=== PATIENT | male | born 1995 | race Caucasian/White ===

== ENCOUNTER 2022-11-09 09:45 | Day surgery (SDC) | payer OTHER ==
[~2022-11-09] VITALS: Ht 177.8 cm; Wt 99.4 kg
[~2022-11-09 09:45] MED LIST: ceFAZolin SOD 2 GM in IV 1 EA IV ONE
[2022-11-09] MEDS ORDERED: ceFAZolin SOD 2 GM in IV 1 EA IV ONE (10:00)
[2022-11-09] MEDS ORDERED: LR 1,000 ML IV SCH ×2 (10:00→11:30)
[2022-11-09] MEDS ORDERED: fentaNYL 100 MCG/2 ML INJECTION As Ordered ONE ×2 (10:02→11:02)
[2022-11-09] MEDS ORDERED: MIDAZOLAM INJ 2MG/2ML VIAL As Ordered ONE (10:02)
[2022-11-09] MEDS ORDERED: ROCURONIUM BROMIDE 50MG/5ML VIAL As Ordered ONE (10:04)
[2022-11-09] MEDS ORDERED: LIDOCAINE 1% SDV 30ML VIAL As Ordered ONE (10:05)
[2022-11-09] MEDS ORDERED: propofoL 200 MG/20 ML VIAL As Ordered ONE (10:55)
[2022-11-09] MEDS ORDERED: dexmedeTOMIDine (4MCG/ML)200MCG/50ML BTL (PRECEDEX) As Ordered ONE (10:55)
[2022-11-09] MEDS ORDERED: SUGAMMADEX SODIUM 500 MG/5 ML VIAL (BRIDION) As Ordered ONE (11:18)
[2022-11-09] MEDS ORDERED: ACETAMINOPHEN 1000MG 100ML IV BAG As Ordered ONE (11:18)
[2022-11-09] MEDS ORDERED: KETOROLAC 60MG 2ML VIAL As Ordered ONE (11:19)
[2022-11-09] MEDS ORDERED: oxyCODONE 5MG TAB PO PRN (11:30)
[2022-11-09] MEDS ORDERED: ONDANSETRON 4MG 2ML VIAL IV PRN (11:30)
[2022-11-09] MEDS ORDERED: fentaNYL 100 MCG/2 ML INJECTION IV PRN (11:30)
[2022-11-09] MEDS ORDERED: MORPHINE 2 MG/ML 1ML VIAL IV PRN (11:30)
[2022-11-09 13:06] VITALS: BP 130/68; TEMP 98.1; O2SAT 97
== END 2022-11-09 13:11 | disposition home or self-care (01) ==
LOC: M SDC 09:45
PROVIDERS: ATTEND Podiatrist Foot & Ankle Surgery
DX: M77.32 Calcaneal spur, left foot (principal); R06.83 Snoring; Z88.0 Allergy status to penicillin
CPT/HCPCS: 28119; C1713; J0131; J0665; J0690; J1100; J1885; J2250; J3010

== ENCOUNTER 2023-02-15 08:18 | Day surgery (SDC) | payer OTHER ==
[~2023-02-15] VITALS: Ht 177.8 cm; Wt 97.6 kg
[2023-02-15] MEDS ORDERED: LR 1,000 ML IV SCH ×2 (08:45→11:15)
[2023-02-15] MEDS ORDERED: fentaNYL 100 MCG/2 ML INJECTION As Ordered ONE (09:01)
[2023-02-15] MEDS ORDERED: MIDAZOLAM INJ 2MG/2ML VIAL As Ordered ONE (09:01)
[2023-02-15] MEDS ORDERED: ONDANSETRON 4MG 2ML VIAL As Ordered ONE (09:02)
[2023-02-15] MEDS ORDERED: KETOROLAC 60MG 2ML VIAL As Ordered ONE (09:02)
[2023-02-15] MEDS ORDERED: LIDOCAINE 2% 100MG/5ML SDV (FOR ANES.) As Ordered ONE (09:04)
[2023-02-15] MEDS ORDERED: LIDOCAINE 1% SDV 30ML VIAL As Ordered ONE (09:05)
[2023-02-15 11:10] VITALS: BP 111/64; TEMP 96.8; O2SAT 97
[2023-02-15] MEDS ORDERED: fentaNYL 100 MCG/2 ML INJECTION IV PRN (11:15)
[2023-02-15] MEDS ORDERED: oxyCODONE 5MG TAB PO PRN (11:15)
[2023-02-15] MEDS ORDERED: ONDANSETRON 4MG 2ML VIAL IV PRN (11:15)
== END 2023-02-15 12:10 | disposition home or self-care (01) ==
LOC: M SDC 08:18
PROVIDERS: ATTEND Podiatrist Foot & Ankle Surgery
DX: M76.61 Achilles tendinitis, right leg (principal); M77.31 Calcaneal spur, right foot
CPT/HCPCS: 27650; 28119; C1713; J0665; J0690; J1100; J1885; J2250; J2405; J3010